=== PATIENT | female | born 1980 | race Caucasian/White ===

== ENCOUNTER 2018-04-05 19:48 | Emergency (ER) | payer BC, OTHER ==
[~2018-04-05] VITALS: Ht 165.1 cm; Wt 54.9 kg
--- NOTE | 2018-04-05 20:27 | NUR ---
DR NETTIE CORTEZ MD AT BEDSIDE FOR MSE.
--- NOTE | 2018-04-05 20:44 | NUR ---
RADIOLOGY AT BEDSIDE FOR XRAY.
--- NOTE | 2018-04-05 21:39 | NUR ---
Patient discharged to home in stable conditon. Written and verbal after care instructions given. Patient verbalizes understanding of instructions. Pt ambulated w/ surgical boot w/ steady gait, and denies pain. No distress noted. Pt took all personal belongings.
[2018-04-05 22:22] VITALS: BP 112/70
== END 2018-04-05 22:30 | disposition home or self-care (01) ==
LOC: ER 19:51
DX: S92.501A Displaced unspecified fracture of right lesser toe(s), initial encounter for closed fracture (principal); Z88.0 Allergy status to penicillin; W20.8XXA Other cause of strike by thrown, projected or falling object, initial encounter; Y93.89 Activity, other specified; Y92.89 Other specified places as the place of occurrence of the external cause; Y99.8 Other external cause status
CPT/HCPCS: 73660; 99284; A4663

== ENCOUNTER 2020-05-19 16:56 | Emergency (ER) | payer BC, OTHER ==
[~2020-05-19] VITALS: Ht 165.1 cm; Wt 57.2 kg
[2020-05-19] MEDS ORDERED: HYDROCODONE/APAP 5-325MG TABLET PO ONE (17:15)
[2020-05-19] MEDS ORDERED: HYDROCODONE/APAP 5-325MG TABLET ONE (17:20)
--- NOTE | 2020-05-19 17:30 | NUR ---
Patient voided & saw blood clots in the toilet bowl. was notified.
[2020-05-19 17:35] LABS: *BILIRUBIN,URIN NEGATIVE (NEGATIVE); *BLOOD, URINE 3+ (NEGATIVE); *CLARITY,URINE CLEAR (CLEAR); *COLOR,URINE YELLOW (YELLOW); *KETONES,URINE NEGATIVE (NEGATIVE); *UROBILINOGEN,URINE 0.2 E.U./dl (NORMAL); LEUKOCYTE ESTERASE ,URINE 1+ (NEGATIVE); NITRITE, URINE NEGATIVE (NEGATIVE); UGLUCOSE NEGATIVE (NEGATIVE)
[2020-05-19 17:41] LABS: BASOPHILS # (AUTO) 0.1 K/uL (0.0-8.0); BASOPHILS % (AUTO) 0.8 % (0.0-2.0); EOSINOPHILS # (AUTO) 0.1 K/uL (0.0-0.7); HEMATOCRIT 38.2 % (31.2-41.9); HEMOGLOBIN 12.8 g/dL (10.9-14.3); LYMPHOCYTES # (AUTO) 2.6 K/uL (20.0-40.0); LYMPHOCYTES % (AUTO) 18.5 % (20.5-51.5); MEAN CORPUSCULAR HEMOGLOBIN 31.5 uug (24.7-32.8); MEAN CORPUSCULAR HGB CONC 33 g/dL (32.3-35.6); MEAN CORPUSCULAR VOLUME 94.2 fL (75.5-95.3); MONOCYTES # (AUTO) 0.8 K/uL (2.0-10.0); NEUTROPHILS # (AUTO) 10.5 K/uL (1.8-8.9); NEUTROPHILS % (AUTO) 73.7 % (38.5-71.5); PLATELET COUNT (AUTO) 326 K/uL (179-408); RED BLOOD CELL COUNT(AUTO) 4.06 MIL/uL (3.63-4.92); WHITE BLOOD COUNT (AUTO) 14.2 K/uL (3.8-11.8)
[2020-05-19 18:24] LABS: BACTERIA,URINE FEW /HPF (NONE SEEN); SQUAMOUS EPITHELIAL CELL,UR FEW /HPF (NONE SEEN)
--- NOTE | 2020-05-19 18:31 | NUR ---
Discharge instructions were given to patient. Follow up with her OB doctor DORCAS. Patient verbalized understanding and compliance to discharge instructions. Discharged patient in stable condition. Patient left ER with brisk steady gait. Copies of all tests' results were given to patient.
== END 2020-05-19 18:33 | disposition home or self-care (01) ==
LOC: ER 17:06
DX: O03.88 Urinary tract infection following complete or unspecified spontaneous abortion (principal); K58.9 Irritable bowel syndrome, unspecified
CPT/HCPCS: 36415; 76856; 85025; 87086; A4663

== ENCOUNTER 2024-05-17 06:49 | Emergency (ER) | payer OTHER, BC ==
[~2024-05-17] VITALS: Ht 165.1 cm; Wt 58.1 kg
[2024-05-17] MEDS ORDERED: ONDANSETRON 4 MG/2 ML VIAL ONE (07:20)
[2024-05-17] MEDS ORDERED: HYDROMORPHONE 1 MG/1 ML DISP.SYRIN ONE ×2 (07:21→08:45)
[2024-05-17] MEDS: ONDANSETRON 4 MG/2 ML VIAL IV ONE (07:26)
[2024-05-17] MEDS: HYDROMORPHONE 1 MG/1 ML DISP.SYRIN IV ONE ×2 (07:26→08:49)
[2024-05-17] MEDS: IV NS 1000 ML 1,000 ML IV ONE (07:26)
[2024-05-17] MEDS: IV NORMAL SALINE 1000 ML BAG IV ONE (07:26)
[2024-05-17 07:33] LABS: BASOPHILS # (AUTO) 0.1 K/UL (0.0-0.2); BASOPHILS % (AUTO) 0.7 % (0.0-2.0); EOSINOPHILS # (AUTO) 0.1 K/uL (0.0-0.7); EOSINOPHILS % (AUTO) 1.5 % (0.0-7.0); HEMATOCRIT 41.5 % (31.2-41.9); HEMOGLOBIN 14.1 g/dL (10.9-14.3); LYMPHOCYTES # (AUTO) 1.4 K/uL (0.8-4.8); LYMPHOCYTES % (AUTO) 16.2 % (20.5-51.5); MEAN CORPUSCULAR HEMOGLOBIN 31.4 uug (24.7-32.8); MEAN CORPUSCULAR HGB CONC 34 g/dL (32.3-35.6); MEAN CORPUSCULAR VOLUME 92.7 fL (75.5-95.3); MONOCYTES # (AUTO) 0.4 K/uL (0.1-1.30); MONOCYTES % (AUTO) 5.1 % (0.0-11.0); NEUTROPHILS # (AUTO) 6.5 K/uL (1.8-8.9); NEUTROPHILS % (AUTO) 76.5 % (38.5-71.5); PLATELET COUNT (AUTO) 395 K/uL (179-408); RED BLOOD CELL COUNT(AUTO) 4.48 MIL/uL (3.63-4.92); RED CELL DISTRIBUTION WIDTH 12.9 % (12.3-17.7); WHITE BLOOD COUNT (AUTO) 8.5 K/uL (3.8-11.8)
[2024-05-17 07:35] LABS: DIFFERENTIAL COMMENT 1
[2024-05-17 07:45] LABS: CALCIUM 8.9 mg/dL (8.5-10.1); CREATININE 0.7 mg/dL (0.6-1.3); POTASSIUM 4.1 mmol/L (3.5-5.1)
[2024-05-17 07:51] LABS: ALBUMIN 3.3 g/dL (3.4-5.0); BILIRUBIN,DIRECT 0.2 mg/dL (0.0-0.2); BILIRUBIN,TOTAL 1.4 mg/dL (0.2-1.0); TOTAL PROTEIN, SERUM 7.7 g/dL (6.4-8.2)
[2024-05-17] MEDS ORDERED: PROCHLORPERAZINE EDISYLATE 10 MG/2 ML VIAL ONE (08:44)
[2024-05-17] MEDS: PROCHLORPERAZINE EDISYLATE 10 MG/2 ML VIAL IV ONE (08:49)
[2024-05-17 09:07] LABS: *BILIRUBIN,URIN NEGATIVE (NEGATIVE); *CLARITY,URINE CLEAR (CLEAR); *COLOR,URINE YELLOW (YELLOW); *KETONES,URINE 2+ (NEGATIVE); *PROTEIN,URINE NEGATIVE (NEGATIVE); *UROBILINOGEN,URINE 0.2 E.U./dl (NORMAL); LEUKOCYTE ESTERASE ,URINE TRACE (NEGATIVE); NITRITE, URINE NEGATIVE (NEGATIVE); UGLUCOSE NEGATIVE (NEGATIVE)
[2024-05-17 09:10] LABS: *BLOOD, URINE TRACE (NEGATIVE); *URINE HCG, QUAL NEGATIVE (NEGATIVE)
[2024-05-17] MEDS ORDERED: ACET1TAB23 PO (09:38)
[2024-05-17] MEDS ORDERED: PROC10TA29 PO (09:38)
[2024-05-17] MEDS ORDERED: AZIT500T4 PO (09:38)
[2024-05-17] MEDS ORDERED: AZITHROMYCIN 250 MG TABLET ONE (09:48)
[2024-05-17] MEDS: AZITHROMYCIN 250 MG TABLET PO ONE (09:52)
[2024-05-17 10:59] VITALS: BP 126/74; TEMP 98.2; O2SAT 98
== END 2024-05-17 11:03 | disposition home or self-care (01) ==
LOC: ER 06:58
DX: A08.4 Viral intestinal infection, unspecified (principal); R10.2 Pelvic and perineal pain; Z98.890 Other specified postprocedural states; Z88.0 Allergy status to penicillin
CPT/HCPCS: 99284; 96374; 96375; 96361; 80076; 80048; 81001; 84703; 85025; 36415; 96376; J2405; J0780; J1170 ×2; J7040 ×2; A4606; A4663; Q0144